=== PATIENT | male | born 1980 | race Two or more races ===

== ENCOUNTER 2025-07-14 00:21 | Inpatient (IN) | payer OTHER ==
[~2025-07-14] VITALS: Ht 182.9 cm; Wt 138.3 kg
[2025-07-14] MEDS ORDERED: BUMETANIDE INJ 0.25 MG/ML VIAL ONE (01:17)
[2025-07-14] MEDS: BUMETANIDE INJ 0.25 MG/ML VIAL IV ONE (01:45)
[2025-07-14 01:52] LABS: PLATELET COUNT (AUTO) 189 K/uL (150-450); RED BLOOD CELL COUNT(AUTO) 5.75 MIL/uL (4.5-6.0); RED CELL DISTRIBUTION WIDTH 14.7 % (11.5-15.0); WHITE BLOOD COUNT (AUTO) 8.3 K/uL (4.3-11.0)
[2025-07-14 02:08] LABS: CALCIUM, SERUM 9.1 mg/dL (8.5-10.1); CREATININE 1.4 mg/dL (0.6-1.3); SODIUM SERUM 137 mmol/L (136-145); UREA NITROGEN, BLOOD 9 mg/dL (7-18)
[2025-07-14 02:17] LABS: LACTIC ACID 3.3 mmol/L (0.4-2.0)
[2025-07-14 02:26] LABS: ASPARTATE AMINOTRANSFERASE 27 U/L (15-37); INR 1.01 (0.91-1.10); NT-PRO BNP 1093 pg/mL (0-125); TOTAL PROTEIN, SERUM 7.1 g/dL (6.4-8.2)
[2025-07-14] MEDS ORDERED: CEFEPIME 1 GM VIAL ONE (02:32)
[2025-07-14] MEDS ORDERED: VANCOMYCIN 1 GM /D5W 250 ML PB IV ONE (02:32)
[2025-07-14] MEDS ORDERED: POTASSIUM CHLORIDE 20 MEQ TAB.PRT.SR PO ONE (02:33)
[2025-07-14] MEDS: POTASSIUM CHLORIDE 20 MEQ TAB.PRT.SR PO ONE (02:43)
[2025-07-14] MEDS: CEFEPIME 1 GM in IV D5W 50 ML IV ONE (02:43)
[2025-07-14] MEDS ORDERED: MAG HYDROX/AL HYDROX/SIMETH 30 ML UDC ONE (02:54)
[2025-07-14] MEDS ORDERED: LIDOCAINE VISCOUS 2% UD 15 ML UDC ONE (02:55)
[2025-07-14] MEDS: VANCOMYCIN 1 GM in IV D5W 250 ML IV ONE (03:04)
[2025-07-14] MEDS: MAG HYDROX/AL HYDROX/SIMETH 30 ML UDC PO ONE (03:04)
[2025-07-14] MEDS: LIDOCAINE VISCOUS 2% UD 15 ML UDC MM ONE (03:04)
[2025-07-14 03:07] LABS: ALCOHOL, BLOOD < 3 mg/dL (0-10)
[2025-07-14] MEDS ORDERED: DOSING PER PHARMACY-CEFEPIME IVPB XX PRN (04:00)
[2025-07-14] MEDS ORDERED: ACETAMINOPHEN 325 MG TABLET PO PRN (04:00)
[2025-07-14] MEDS ORDERED: ONDANSETRON HCL/PF 4 MG/2 ML VIAL IVP PRN (04:00)
[2025-07-14] MEDS ORDERED: MAGNESIUM HYDROXIDE 30 ML UDC PO PRN (04:00)
[2025-07-14] MEDS ORDERED: DOSING PER PHARMACY-VANCOMYCIN IV XX PRN (04:00)
[2025-07-14] MEDS ORDERED: MAG HYDROX/AL HYDROX/SIMETH 30 ML UDC PO PRN (04:00)
[2025-07-14 07:42] VITALS: O2SAT 95
[2025-07-14] MEDS ORDERED: SACU1TAB PO (09:17)
[2025-07-14] MEDS ORDERED: BUME1TAB8 PO (09:17)
[2025-07-14] MEDS ORDERED: BUPR-54 PO (09:17)
[2025-07-14] MEDS ORDERED: CARV25TA2 PO (09:17)
[2025-07-14] MEDS ORDERED: ASPI-1169 PO (09:17)
[2025-07-14] MEDS ORDERED: BIMA2.5D5 EACHEYE (09:17)
[2025-07-14] MEDS: VANCOMYCIN HCL 1.25 GM in IV D5W 250 ML IV ONE (09:33)
[2025-07-14] MEDS: PANTOPRAZOLE 40 MG TABLET.DR PO SCH (09:38)
[2025-07-14] MEDS: BUMETANIDE INJ 0.25 MG/ML VIAL IV SCH (09:39)
[2025-07-14] MEDS: HEPARIN SODIUM, PORCINE 5000 UNITS/1 ML VIAL SQ SCH (09:39)
[2025-07-14] MEDS: CARVEDILOL 6.25 MG TABLET PO SCH (09:43)
[2025-07-14] MEDS: CEFEPIME 2 GM in IV D5W 100 ML IV SCH (11:49)
[2025-07-14 12:00] VITALS: BP 126/107; TEMP 98.3; O2SAT 96
[2025-07-14 15:57] LABS: APPEARANCE,URINE CLEAR (CLEAR); BLOOD, URINE TRACE-INTA Ery/uL (NEGATIVE); LEUKOCYTE ESTERASE ,URINE NEGATIVE (NEGATIVE); NITRITE, URINE NEGATIVE (NEGATIVE); UGLUCOSE NEGATIVE (NEGATIVE)
[2025-07-14 16:00] VITALS: BP 137/94; TEMP 98; O2SAT 94
[2025-07-14 16:11] LABS: BARBITURATE, URINE NEGATIVE (NEGATIVE); BENZODIAZEPINE, URINE NEGATIVE (NEGATIVE); CANNABINOID, URINE NEGATIVE (NEGATIVE); COCCAINE, URINE NEGATIVE (NEGATIVE); OPIATE, URINE NEGATIVE (NEGATIVE)
[2025-07-14 16:13] LABS: AMPHETAMINE, URINE POSITIVE (NEGATIVE)
[2025-07-14 16:23] LABS: ADD URINE CULTURE NO; CREATININE, URINE 60.2 MG/DL (30.0-125.0); URINE SODIUM, RANDOM 151.0 mmol/l (40-220); URINE TOTAL PROTEIN 70.7 mg/dL (0-11.9)
[2025-07-14 16:24] LABS: SQUAMOUS EPITHELIAL CELL,UR Rare /HPF (None Seen)
[2025-07-14 16:58] LABS: EOSINOPHIL,URINE None Seen
[2025-07-14 20:04] VITALS: BP 123/78; TEMP 97.7; O2SAT 92
[2025-07-14] MEDS: VANCOMYCIN HCL 1.25 GM in IV D5W 250 ML IV SCH (20:05)
[2025-07-14] MEDS: LATANOPROST EYE DROP 0.005% 2.5 ML BOTTLE OP SCH (21:01)
[2025-07-14] MEDS: ZOLPIDEM TARTRATE 5 MG TABLET PO PRN (21:30)
[2025-07-15] VITALS (7 sets, daily range): BP systolic 97–129; BP diastolic 51–98; TEMP 97.3–98.2; O2SAT 93–98
[2025-07-15] MEDS: BUPROPION XL 150 MG TAB.ER.24 PO SCH (10:51)
[2025-07-15] MEDS: ASPIRIN 81 MG TAB.CHEW PO SCH (10:51)
[2025-07-15] MEDS: Z GUARD REMEDY 4 OZ OINT TP PRN (10:52)
[2025-07-15] MEDS: VANCOMYCIN 1 GM in IV D5W 250ml IV SCH (11:40)
[2025-07-16 07:00] VITALS: BP 124/98; TEMP 97.7; O2SAT 99
[2025-07-16] MEDS ORDERED: CHLORHEXIDINE GLUCONATE 4% 118 ML BOTTLE TP SCH ×2 (09:00→11:30)
[2025-07-16 10:07] LABS: PLATELET COUNT (AUTO) 205 K/uL (150-450); RED BLOOD CELL COUNT(AUTO) 6.05 MIL/uL (4.5-6.0); RED CELL DISTRIBUTION WIDTH 14.4 % (11.5-15.0); WHITE BLOOD COUNT (AUTO) 7.1 K/uL (4.3-11.0)
[2025-07-16 10:17] LABS: CALCIUM, SERUM 8.8 mg/dL (8.5-10.1); CREATININE 1.4 mg/dL (0.6-1.3); SODIUM SERUM 141.0 mmol/L (136-145); UREA NITROGEN, BLOOD 13.0 mg/dL (7-18)
[2025-07-16 10:55] LABS: PHOSPHORUS 2.4 mg/dL (2.5-4.9)
[2025-07-16] MEDS ORDERED: MUPIROCIN OINT 2% 22 GM TUBE TP SCH (12:29)
[2025-07-16] MEDS: MUPIROCIN OINT 2% 22 GM TUBE TP SCH (13:08)
[2025-07-16] MEDS: CHLORHEXIDINE GLUCONATE 4% 118 ML BOTTLE TP SCH (13:09)
[2025-07-16 13:12] LABS: CREATINE KINASE, TOTAL 151.0 U/L (39-308)
[2025-07-16 16:00] VITALS: BP 119/77; TEMP 97.5; O2SAT 96
[2025-07-16] MEDS: K PHOS NEUTRAL 250 MG TABLET PO ONE (16:41)
[2025-07-16 20:00] VITALS: BP 115/75; TEMP 97.7; O2SAT 97
[2025-07-17 06:12] LABS: PTH, INTACT 37 pg/mL (15-65)
[2025-07-17 07:00] VITALS: BP 128/83; TEMP 97.7; O2SAT 98
[2025-07-17 11:30] VITALS: BP 138/103; TEMP 97.9; O2SAT 97
== END 2025-07-17 14:45 | disposition home or self-care (01) | DRG 194 ==
LOC: ER 00:32 → TELE 06:59 → MED 07-15 15:33
PROVIDERS: ADMIT Internal Medicine; ATTEND Nurse Practitioner Acute Care
DX: I13.0 Hypertensive heart and chronic kidney disease with heart failure and stage 1 through stage 4 chronic kidney disease, or unspecified chronic kidney disease (principal); N17.0 Acute kidney failure with tubular necrosis; E87.20 Acidosis, unspecified; L97.219 Non-pressure chronic ulcer of right calf with unspecified severity; N18.9 Chronic kidney disease, unspecified; I50.43 Acute on chronic combined systolic (congestive) and diastolic (congestive) heart failure; I42.8 Other cardiomyopathies; Z79.82 Long term (current) use of aspirin; Z79.899 Other long term (current) drug therapy; F15.10 Other stimulant abuse, uncomplicated; E87.6 Hypokalemia; M89.8X9 Other specified disorders of bone, unspecified site; Z68.41 Body mass index [BMI] 40.0-44.9, adult; E66.01 Morbid (severe) obesity due to excess calories; G47.33 Obstructive sleep apnea (adult) (pediatric); Z95.810 Presence of automatic (implantable) cardiac defibrillator; Z87.891 Personal history of nicotine dependence; I87.8 Other specified disorders of veins
CPT/HCPCS: 36415; 71045-TC; 80048-TC; 80053-TC; 80076-TC; 80202-TC; 81001; 82550-TC; 82570-TC; 83605-TC; 83735-TC; 83880; 83970; 84100-TC; 84155; 84165; 84300-TC; 84443-TC; 84484-TC; 85025-TC; 85378-TC; 85730-TC; 87040-TC; 93307-TC; 93970-TC; 97112-TC; 97116-TC; 97530-TC; A4223; G0378; G0480; J0692; J1644; J3373; J3490; J7040; J7060

== ENCOUNTER 2025-09-14 21:53 | Inpatient (IN) | payer OTHER ==
[~2025-09-14] VITALS: Ht 182.9 cm; Wt 143.3 kg
[~2025-09-14 21:53] MED LIST: ASPI-1169 PO; BIMA2.5D5 EACHEYE; BUME1TAB8 PO; BUPR-54 PO; CARV25TA2 PO; SACU1TAB PO
[2025-09-14 22:55] LABS: PLATELET COUNT (AUTO) 190 K/uL (150-450); RED BLOOD CELL COUNT(AUTO) 5.64 MIL/uL (4.5-6.0); RED CELL DISTRIBUTION WIDTH 14.6 % (11.5-15.0); WHITE BLOOD COUNT (AUTO) 6.8 K/uL (4.3-11.0)
[2025-09-14 22:59] LABS: CALCIUM, SERUM 8.8 mg/dL (8.5-10.1); CREATININE 1.3 mg/dL (0.6-1.3); SODIUM SERUM 140 mmol/L (136-145); UREA NITROGEN, BLOOD 15 mg/dL (7-18)
[2025-09-14] MEDS ORDERED: FUROSEMIDE 40 MG/4 ML VIAL ONE (23:06)
[2025-09-14] MEDS: FUROSEMIDE 40 MG/4 ML VIAL IV ONE (23:10)
[2025-09-14 23:12] LABS: ASPARTATE AMINOTRANSFERASE 24 U/L (15-37); NT-PRO BNP 1268 pg/mL (0-125); TOTAL PROTEIN, SERUM 7.3 g/dL (6.4-8.2)
[2025-09-14] MEDS: ASPIRIN 325 MG TABLET PO ONE (23:31)
[2025-09-15 04:00] VITALS: BP 141/100; TEMP 97.7; O2SAT 96
[2025-09-15] MEDS ORDERED: ONDANSETRON HCL/PF 4 MG/2 ML VIAL IVP PRN (04:00)
[2025-09-15] MEDS ORDERED: ACETAMINOPHEN 325 MG TABLET PO PRN (04:00)
[2025-09-15] MEDS ORDERED: MAG HYDROX/AL HYDROX/SIMETH 30 ML UDC PO PRN (04:00)
[2025-09-15] MEDS: POTASSIUM CHLORIDE 20 MEQ TAB.PRT.SR PO ONE (04:41)
[2025-09-15] MEDS: ENOXAPARIN SODIUM 40 MG/0.4 ML DISP.SYRIN SQ SCH (04:42)
[2025-09-15 08:00] VITALS: BP 138/95; TEMP 97.5; O2SAT 95
[2025-09-15] MEDS: BUPROPION XL 150 MG TAB.ER.24 PO SCH (11:46)
[2025-09-15] MEDS: ASPIRIN 81 MG TAB.CHEW PO SCH (11:46)
[2025-09-15 12:00] VITALS: BP 138/96; TEMP 97.3; O2SAT 95
[2025-09-15 16:00] VITALS: BP 162/121; TEMP 97.1; O2SAT 95
[2025-09-15] MEDS: BUMETANIDE (1 MG) 1 MG TABLET PO SCH (16:08)
[2025-09-15] MEDS: CARVEDILOL 12.5 MG TABLET PO SCH (16:12)
[2025-09-15 20:00] VITALS: BP 125/87; TEMP 97.5; O2SAT 95
[2025-09-15] MEDS: LATANOPROST EYE DROP 0.005% 2.5 ML BOTTLE OP SCH (21:25)
[2025-09-16] VITALS: BP 112/84; TEMP 96.5; O2SAT 95
[2025-09-16] MEDS: ZOLPIDEM TARTRATE 10 MG TABLET PO ONE (01:30)
[2025-09-16 04:00] VITALS: BP 93/64; TEMP 96.8; O2SAT 92
[2025-09-16 08:00] VITALS: BP 110/83; TEMP 98.2; O2SAT 95
[2025-09-16 08:15] VITALS: BP 110/83
[2025-09-16 12:19] LABS: BARBITURATE, URINE NEGATIVE (NEGATIVE); BENZODIAZEPINE, URINE NEGATIVE (NEGATIVE); CANNABINOID, URINE NEGATIVE (NEGATIVE); COCCAINE, URINE NEGATIVE (NEGATIVE); OPIATE, URINE NEGATIVE (NEGATIVE)
[2025-09-16 12:24] LABS: AMPHETAMINE, URINE POSITIVE (NEGATIVE)
== END 2025-09-16 16:22 | disposition home or self-care (01) | DRG 198 ==
LOC: ER 21:56 → TELE1 09-15 02:29 → MEDSG1 09-16 09:18
PROVIDERS: ADMIT Nurse Practitioner Acute Care; ATTEND Nurse Practitioner Acute Care
DX: I25.10 Atherosclerotic heart disease of native coronary artery without angina pectoris (principal); I50.43 Acute on chronic combined systolic (congestive) and diastolic (congestive) heart failure; I27.24 Chronic thromboembolic pulmonary hypertension; I11.0 Hypertensive heart disease with heart failure; E66.01 Morbid (severe) obesity due to excess calories; F32.A Depression, unspecified; F15.10 Other stimulant abuse, uncomplicated; I42.9 Cardiomyopathy, unspecified; E78.5 Hyperlipidemia, unspecified; F17.290 Nicotine dependence, other tobacco product, uncomplicated; H40.9 Unspecified glaucoma; Z79.82 Long term (current) use of aspirin; Z95.810 Presence of automatic (implantable) cardiac defibrillator; D75.1 Secondary polycythemia; R09.02 Hypoxemia; Z68.41 Body mass index [BMI] 40.0-44.9, adult; Z79.899 Other long term (current) drug therapy
CPT/HCPCS: 36415; 71045-TC; 80048-TC; 80076-TC; 83880; 84484-TC; 85025-TC; 93307-TC; 93970-TC; G0378; J1650; J1938